=== PATIENT | male | born 1995 ===

== ENCOUNTER 2016-06-28 22:04 | Emergency (ER) | payer OTHER ==
[~2016-06-28] VITALS: Ht 175 cm; Wt 92.0 kg
[2016-06-28 22:24] VITALS: BP 145/83; TEMP 99.2
[2016-06-28 23:39] VITALS: PULSE 106
== END 2016-06-28 23:39 | disposition home or self-care (01) ==
LOC: COL.ER 22:04
DX: S93.402A Sprain of unspecified ligament of left ankle, initial encounter (principal); X50.1XXA Overexertion from prolonged static or awkward postures, initial encounter